=== PATIENT | male | born 1960 | race Caucasian/White ===

== ENCOUNTER 2019-12-19 08:31 | Emergency (ER) | payer OTHER ==
[~2019-12-19] VITALS: Ht 167.6 cm; Wt 119.3 kg
[2019-12-19 09:00] VITALS: Ht 167.6 cm; Wt 119.3 kg
[2019-12-19 09:51] LABS: PLATELET COUNT 81 x10^3mcL (130-400); RED CELL DISTRIBUTION WIDTH 16.4 % (11.5-14.5)
[2019-12-19 09:52] LABS: BASOPHIL % 0 % (0-2)
[2019-12-19 10:10] LABS: CALCIUM 8.8 mg/dL (8.5-10.1); CARBON DIOXIDE 21.5 mmol/L (21-32); CHLORIDE SERUM 103 mmol/L (98-107); CREATININE SERUM 1.1 mg/dL (0.7-1.3); GFR1 > 60 mL/min; GLUCOSE SERUM 149 mg/dL (74-106); POTASSIUM SERUM 4.3 mmol/L (3.5-5.1); SODIUM SERUM 135 mmol/L (136-145)
[2019-12-19 10:14] LABS: ALKALINE PHOSPHATASE 189 U/L (46-116); ALT/SGPT 59 U/L (16-63); AST/SGOT 32 U/L (15-37); BILIRUBIN TOTAL 1.1 mg/dL (0.20-1.00)
[2019-12-19 10:18] LABS: ALBUMIN 2.8 g/dL (3.4-5.0); TOTAL PROTEIN, SERUM 5.8 g/dL (6.4-8.2)
[2019-12-19 13:49] VITALS: BP 108/67
== END 2019-12-19 13:49 | disposition home or self-care (01) ==
LOC: ED 08:31
PROVIDERS: Specialist
DX: K70.31 Alcoholic cirrhosis of liver with ascites (principal); I10 Essential (primary) hypertension; E11.9 Type 2 diabetes mellitus without complications; E78.00 Pure hypercholesterolemia, unspecified
CPT/HCPCS: 36415; 49083; J2001; Q0092